=== PATIENT | male | born 1955 | race Caucasian/White ===

== ENCOUNTER 2017-12-15 05:57 | Day surgery (SDC) | payer MEDICAID ==
[~2017-12-15] VITALS: Ht 190.5 cm; Wt 97.3 kg
[2017-12-15] MEDS ORDERED: LIDOCAINE HCL 4% 50 ML SOLUTION TP ONE (05:58)
[2017-12-15] MEDS ORDERED: LIDOCAINE HCL 2% 30 ML JELLY TP ONE (05:58)
[2017-12-15] MEDS ORDERED: ALBUTEROL SULFATE 2.5 MG/0.5 ML NEB SOLUTION NEB ONE (05:58)
[2017-12-15] MEDS ORDERED: BENZOCAINE 20% 50 MCG/SPRAY 57 GM TP ONE (05:58)
[2017-12-15] MEDS ORDERED: SODIUM CHLORIDE 0.9% 1,000 ML IV ONE ×2 (06:02→07:00)
[2017-12-15] MEDS ORDERED: RANI150T7 PO (06:21)
[2017-12-15] MEDS ORDERED: SPIR25 PO (06:21)
[2017-12-15] MEDS ORDERED: ASPI81 PO (06:21)
[2017-12-15] MEDS ORDERED: METO25 PO (06:21)
[2017-12-15] MEDS ORDERED: OMEP20 PO (06:21)
[2017-12-15] MEDS ORDERED: AMIO200T44 PO (06:21)
[2017-12-15] MEDS ORDERED: CLOP75 PO (06:21)
[2017-12-15] MEDS ORDERED: FURO20 PO (06:21)
[2017-12-15] MEDS ORDERED: ATOR40TA28 PO (06:21)
[2017-12-15] MEDS ORDERED: MIDAZOLAM HCL 2 MG/2 ML VIAL ONE (07:30)
[2017-12-15] MEDS ORDERED: FentaNYL CITRATE-PF 100 MCG/2 ML VIAL ONE (07:31)
[2017-12-15] MEDS ORDERED: MethylPREDNISolone SOD SUCC 125 MG/2 ML VIAL IVP ONE (08:45)
[2017-12-15] MEDS ORDERED: MethylPREDNISolone SOD SUCC 125 MG/2 ML VIAL ONE (08:54)
[2017-12-15] MEDS ORDERED: OXYGEN THERAPY IH SCH (20:00)
== END 2017-12-15 10:40 | disposition home or self-care (01) ==
LOC: SURGERY 05:57
PROVIDERS: ATTEND Internal Medicine Critical Care Medicine
DX: J38.4 Edema of larynx (principal); B37.0 Candidal stomatitis; B19.20 Unspecified viral hepatitis C without hepatic coma; E78.00 Pure hypercholesterolemia, unspecified; I25.2 Old myocardial infarction; I50.9 Heart failure, unspecified; I48.91 Unspecified atrial fibrillation; F12.21 Cannabis dependence, in remission; Z95.810 Presence of automatic (implantable) cardiac defibrillator; Z86.74 Personal history of sudden cardiac arrest; Z90.49 Acquired absence of other specified parts of digestive tract; Z90.89 Acquired absence of other organs; Z98.42 Cataract extraction status, left eye; Z98.41 Cataract extraction status, right eye; Z95.5 Presence of coronary angioplasty implant and graft; Z87.891 Personal history of nicotine dependence; Z72.89 Other problems related to lifestyle; Z79.82 Long term (current) use of aspirin; Z79.899 Other long term (current) drug therapy
CPT/HCPCS: 31623; 31624; 71045; 87015; 87070; 87077; 87186; 87205; 87220; 88108; 88312; J2250; J2930; J3010; J7030